=== PATIENT | female | born 1990 | race Caucasian/White ===

== ENCOUNTER 2020-04-12 01:30 | Emergency (ER) | payer OTHER ==
[2020-04-12] MEDS ORDERED: NORCO 5-325 TA1 EACH PO (02:09)
[2020-04-13] MEDS ORDERED: LEVOTHYROXINE137 MCG PO (10:40)
[2020-04-13] MEDS ORDERED: SERTRALINE HCL50 MG PO (10:41)
[2020-04-13] MEDS ORDERED: ALPRAZOLAM 1MG T1 MG PO (10:41)
[2020-04-15] MEDS ORDERED: PERCOCET 5-3251 EACH PO (08:54)
== END 2020-04-12 02:59 | disposition home or self-care (01) ==
LOC: FER 01:30
DX: S52.572A Other intraarticular fracture of lower end of left radius, initial encounter for closed fracture (principal); S52.612A Displaced fracture of left ulna styloid process, initial encounter for closed fracture; E03.9 Hypothyroidism, unspecified; Z79.899 Other long term (current) drug therapy; W00.0XXA Fall on same level due to ice and snow, initial encounter; Y92.009 Unspecified place in unspecified non-institutional (private) residence as the place of occurrence of the external cause
CPT/HCPCS: 73090; 73110

== ENCOUNTER → 2020-04-15 | Day surgery (SDC) | payer OTHER ==
[~2020-04-15] MED LIST: ALPRAZOLAM 1MG T1 MG PO; LEVOTHYROXINE137 MCG PO; NORCO 5-325 TA1 EACH PO; PERCOCET 5-3251 EACH PO; SERTRALINE HCL50 MG PO
[2020-04-15 08:23] LABS: HCG (URINE) SCREEN NEGATIVE (NEGATIVE)
== END | disposition home or self-care (01) ==
LOC: FAS 07:36
PROVIDERS: Anesthesiology
DX: S52.572A Other intraarticular fracture of lower end of left radius, initial encounter for closed fracture (principal); W00.0XXA Fall on same level due to ice and snow, initial encounter; E03.9 Hypothyroidism, unspecified; Z20.822 Contact with and (suspected) exposure to COVID-19; Z79.899 Other long term (current) drug therapy
CPT/HCPCS: 73100; 76000; 84703; C1713; C1769; J0690; J1100; J1885; J2250; J2405; J2704; J2795; J3010; J7120